=== PATIENT | female | born 1970 | race Two or more races ===

== ENCOUNTER 2021-10-16 09:01 | Outpatient (CLI) | payer BC | END 2021-10-16 09:02 | disposition home or self-care (01) | LOC: BICRAD 09:01 | PROVIDERS: ATTEND Internal Medicine Rheumatology | DX: M25.541 Pain in joints of right hand (principal); M25.542 Pain in joints of left hand; M19.041 Primary osteoarthritis, right hand; M19.042 Primary osteoarthritis, left hand ==